=== PATIENT | female | born 1935 | race Caucasian/White ===

== ENCOUNTER → 2016-12-11 | Outpatient (CLI) | payer OTHER, MEDICARE | LOC: BHLMT 09:30 | PROVIDERS: ATTEND Internal Medicine Cardiovascular Disease | DX: R07.9 Chest pain, unspecified (principal); R94.31 Abnormal electrocardiogram [ECG] [EKG]; I25.10 Atherosclerotic heart disease of native coronary artery without angina pectoris; E78.00 Pure hypercholesterolemia, unspecified | CPT/HCPCS: 93005-PO ==

== ENCOUNTER → 2016-12-12 | Outpatient (CLI) | payer OTHER, MEDICARE ==
--- NOTE | 2016-12-12 16:27 | CPR ---
[f rep st] NONINVASIVE CARDIAC PROCEDURE REPORT DATE OF PROCEDURE: 12/12/2016 PROCEDURE: Treadmill nuclear stress test REASON FOR TEST: 1. Known coronary artery disease. 2. Stent. 3. Chest pain. RESTING PORTION: Resting EKG shows a regular sinus rhythm with a rate of 67. She has septal T-wave inversions indicative of old infarct. No ischemic changes noted. Blood pressure 114/70, oxygen satu ration 96%, heart rate 67. STRESS PORTION: She was exercised according to the Yaakov protocol for a total of 4 minutes and 3 sec onds. Peak blood pressure 156/72, peak heart rate 130, MET level 4.6. At 2 minutes and 36 seconds i nto stage 1, she did have an episode of atrial tachycardia lasting up to 15 beats, and then went back into sinus rhythm spontaneously. She was asymptomatic. There were no ischemic changes noted. RECOVERY: She spontaneously recovered. Recovery blood pressure 122/74, recovery heart rate 85, she remained asymptomatic. She had an occasional PAC noted in recovery. At this time, she currently is stable for nuclear imaging. /[id number]/MODL
== END ==
LOC: FIMAGING 13:54
PROVIDERS: ATTEND Nurse Practitioner Family
DX: I25.10 Atherosclerotic heart disease of native coronary artery without angina pectoris (principal); R07.9 Chest pain, unspecified; R94.31 Abnormal electrocardiogram [ECG] [EKG]
CPT/HCPCS: 78452; 93017; A9500

== ENCOUNTER → 2017-07-16 | Outpatient (CLI) | payer OTHER, MEDICARE | LOC: FIMAGING 14:15 | PROVIDERS: ATTEND Internal Medicine | DX: M41.86 Other forms of scoliosis, lumbar region (principal); M51.36 Other intervertebral disc degeneration, lumbar region; C50.919 Malignant neoplasm of unspecified site of unspecified female breast ==

== ENCOUNTER 2018-01-14 12:38 | Inpatient (IN) | payer OTHER, MEDICARE ==
[2018-01-14 13:09] LABS: PLATELET COUNT 239 10^3/uL (150-400)
--- NOTE | 2018-01-14 13:21 | EDPHY ---
H & P Stated Complaint: MIDSTERNAL CHEST PRESSURE SINCE YESTERDAY Source: Patient Exam Limitations: No limitations - Personal History Current Tetanus Diphtheria and Acellular Pertussis (TDAP): Unsure - Medical/Surgical History Hx Asthma: No Hx Chronic Respiratory Disease: No Hx Diabetes: No Hx Cardiac Disease: Yes Hx Renal Disease: No Hx Cirrhosis: No Hx Alcoholism: No Hx HIV/AIDS: No Hx Splenectomy or Spleen Trauma: No Other PMH: cardiac stents, BREASTCANCER 2012, LOBECTOMY 2012, RADIATION, BLADDER PROLAPS - Social History Smoking Status: Never smoked Time Seen by Provider: 01/14/18 13:01 HPI/ROS: CHIEF COMPLAINT: Chest pressure HISTORY OF PRESENT ILLNESS: The patient presents the ED with a 1 day history of chest pressure. The patient's symptoms began at midnight last night. She took antacids without significant improvement. She also took nitroglycerin without significant improvement. She had mild recurrent symptoms again at 5:00 a.m. This morning and has been asymptomatic since that time. The patient reports that she exercises frequently without chest pain or shortness of breath. She does have a history of coronary artery disease with a stent x1 performed in 2005. The patient has typically been followed with treadmill stress test. The patient reports her last stress test was approximately a year and half ago and normal. The patient denies any fever, cough or congestion. She denies asymmetric calf pain or swelling. She denies additional acute complaints. REVIEW OF SYSTEMS: A comprehensive 10 point review of systems is otherwise negative aside from elements mentioned in the history of present illness. (Trung Hensley) - Physical Exam Exam: General Appearance: Alert, no distress Eyes: Pupils equal and round no pallor or injection ENT, Mouth: Mucous membranes moist Respiratory: There are no retractions, lungs are clear to auscultation Cardiovascular: Regular rate and rhythm Gastrointestinal: Abdomen is soft and nontender, no masses, bowel sounds normal Neurological: A&O, normal motor function, normal sensory exam, normal cranial nerves Skin: Warm and dry, no rashes Musculoskeletal: Neck is supple nontender Extremities: symmetrical, full range of motion Psychiatric: Patient is oriented X 3, there is no agitation (Trung Hensley) Constitutional: Initial Vital Signs Temperature (C) 37.2 C 01/14/18 12:44 Heart Rate 84 01/14/18 12:44 Respiratory Rate 18 01/14/18 12:44 Blood Pressure 161/85 H 01/14/18 12:44 O2 Sat (%) 96 01/14/18 12:44 O2 Delivery Mode Room Air Allergies/Adverse Reactions: atorvastatin calcium [From Lipitor] Allergy (Verified 01/14/18 12:43) metronidazole [From Flagyl] Allergy (Verified 01/14/18 12:43) rosuvastatin calcium [From Crestor] Allergy (Verified 01/14/18 12:43) chlora prep Allergy (Uncoded 02/09/15 11:13) Home Medications: Medication Instructions Recorded Herbals/Supplements -Info Only 1 ea PO DAILY 02/09/15 Aspirin EC [Aspirin EC 81 mg (*)] 81 mg PO HS 01/14/18 Cholecalciferol Vit D3 [Vitamin D3 2,000 units PO DAILY 01/14/18 2000 units tab (OTC)] Estradiol [Estrace Vaginal (*)] 1 gm VAG SUWE 01/14/18 Levothyroxine [Synthroid 50 mcg 50 mcg PO DAILY06 01/14/18 (*)] Multivitamins [Multivitamin (*)] 1 each PO DAILY 01/14/18 Simvastatin 20 mg PO HS 01/14/18 Medical Decision Making - Diagnostics EKG Interpretation: EKG: Complete interpretation has been separately recorded in the [employer] archive. Summary impression: Sinus rhythm, the subtle ST segment elevation noted in the precordial leads without reciprocal changes. (Trung Hensley) Imaging Results: Imaging Impressions Chest X-Ray 01/14/18 13:02 Impression: Borderline cardiomegaly with no acute findings in the chest ED Course/Re-evaluation: The patient presents to the ED with a 1 day history of somewhat atypical chest pain. The patient's EKG demonstrates nonspecific ST T wave changes noted. The patient's initial troponin is normal. She has had no history of exertional chest pain with exercise. The patient has ruled out based upon the timing of her troponin here. I have ordered a treadmill stress test for further evaluation of the patient's chest pain which seems to be atypical in nature. Plan will be for treadmill stress test in the ED and discharged home if normal. The patient will be turned over to Dr. Vega at shift change. (Trung Hensley ) Differential Diagnosis: Differential diagnosis considered includes acute coronary syndrome, gastroesophageal reflux, esophageal spasm (Trung Hensley) Other Provider: I received a report of her treadmill stress test at 3:20 p.m.. The stress test was positive. She had inferolateral ST depression with occasional PVCs. She had some jaw discomfort. She had limited exercise tolerance. The plan is for her to be admitted to the hospitalist service and undergo cardiac catheterization tomorrow. I will arrange admission and review these findings with the patient. She remained stable while in the emergency department under my care. She was not experiencing chest pain. (Faith Vega) - Data Points Laboratory Results: Laboratory Results 01/14/18 12:55 01/14/18 12:55 01/14/18 01/14/18 01/14/18 12:56 12:55 12:55 WBC RBC Hgb Hct MCV MCH MCHC RDW Plt Count MPV Neut % (Auto) Lymph % (Auto) [place] % (Auto) Eos % (Auto) Baso % (Auto) Nucleat RBC Rel Count Absolute Neuts (auto) Absolute Lymphs (auto) Absolute Monos (auto) Absolute Eos (auto) Absolute Basos (auto) Absolute Nucleated RBC Immature Gran % Immature Gran # Sodium 140 mEq/L mEq/L (135-145) Potassium 4.3 mEq/L mEq/L (3.3-5.0) Chloride 103 mEq/L mEq/L (97-110) Carbon Dioxide 27 mEq/l mEq/l (22-31) Anion Gap 10 mEq/L mEq/L (6-14) BUN 17 mg/dL mg/dL (7-23) Creatinine 0.9 mg/dL mg/dL (0.6-1.0) Estimated GFR 60 Glucose 103 mg/dL H mg/dL (70-100) Calcium 10.3 mg/dL mg/dL (8.5-10.4) POC Troponin I 0.00 ng/mL ng/mL (0.00-0.08) Troponin I < 0.012 ng/mL ng/mL (0.000-0.034) 01/14/18 12:55 WBC 6.35 10^3/uL 10^3/uL (3.80-9.50) RBC 4.94 10^6/uL 10^6/uL (4.18-5.33) Hgb 14.5 g/dL g/dL (12.6-16.3) Hct 44.5 % % (38.0-47.0) MCV 90.1 fL fL (81.5-99.8) MCH 29.4 pg pg (27.9-34.1) MCHC 32.6 g/dL g/dL (32.4-36.7) RDW 13.2 % % (11.5-15.2) Plt Count 239 10^3/uL 10^3/uL (150-400) MPV 11.2 fL fL (8.7-11.7) Neut % (Auto) 51.2 % % (39.3-74.2) Lymph % (Auto) 37.5 % % (15.0-45.0) [place] % (Auto) 8.8 % % (4.5-13.0) Eos % (Auto) 1.4 % % (0.6-7.6) Baso % (Auto) 0.9 % % (0.3-1.7) Nucleat RBC Rel Count 0.0 % % (0.0-0.2) Absolute Neuts (auto) 3.25 10^3/uL 10^3/uL (1.70-6.50) Absolute Lymphs (auto) 2.38 10^3/uL 10^3/uL (1.00-3.00) Absolute Monos (auto) 0.56 10^3/uL 10^3/uL (0.30-0.80) Absolute Eos (auto) 0.09 10^3/uL 10^3/uL (0.03-0.40) Absolute Basos (auto) 0.06 10^3/uL 10^3/uL (0.02-0.10) Absolute Nucleated RBC 0.00 10^3/uL 10^3/uL (0-0.01) Immature Gran % 0.2 % % (0.0-1.1) Immature Gran # 0.01 10^3/uL 10^3/uL (0.00-0.10) Sodium Potassium Chloride Carbon Dioxide Anion Gap BUN Creatinine Estimated GFR Glucose Calcium POC Troponin I Troponin I Medications Given: Aspirin Buffered (Aspirin Ec) 81 mg PO HS DELON Stop: 07/13/18 20:59 Last Admin: 01/14/18 20:28 Dose: 81 mg Miscellaneous Medication (Simvastatin [Simvastatin]) 20 mg PO HS [facility] Stop: 07/13/18 20:59 Last Admin: 01/14/18 21:36 Dose: Not Given Nitroglycerin (Nitro-Bid 2%) 1 inch TP Q6HRS [facility] Stop: 07/13/18 17:59 Last Admin: 01/14/18 17:12 Dose: 1 inch Point of Care Test Results: Chemistry 01/14/18 12:56 POC Troponin I 0.00 ng/mL ng/mL (0.00-0.08) Departure - Departure Disposition: [facility] Inpatient Acute Clinical Impression: Chest pain Condition: Good
--- NOTE | 2018-01-14 13:40 | CPEKG ---
Test Reason : OPEN Blood Pressure : / mmHG Vent. Rate : 094 BPM Atrial Rate : 094 BPM P-R Int : 233 ms QRS Dur : 079 ms QT Int : 363 ms P-R-T Axes : 062 -09 026 degrees QTc Int : 454 ms Sinus rhythm Inferior Q waves Confirmed by Trung Hensley ([id number]) on 01/14/2018 1:40:01 PM Referred By: Confirmed By:Trung Hensley
[2018-01-14] MEDS ORDERED: ACETAMINOPHEN 325 MG TAB PO PRN (17:05)
[2018-01-14] MEDS ORDERED: NITROGLYCERIN 0.4 MG BTL SL PRN (17:05)
[2018-01-14] MEDS ORDERED: TEMAZEPAM 15 MG CAP PO PRN (17:05)
[2018-01-14] MEDS ORDERED: NITROGLYCERIN 2% 1 GM PACKET ONE (17:06)
[2018-01-14] MEDS: NITROGLYCERIN 2% 1 GM PACKET TP SCH (17:12)
[2018-01-14] MEDS ORDERED: ONDANSETRON DISINTEGRATING 4 MG TAB PO PRN (17:27)
[2018-01-14] MEDS ORDERED: ONDANSETRON 4 MG/2 ML VIAL IVP PRN (17:27)
--- NOTE | 2018-01-14 17:36 | PDGENHP ---
History and Physical - Chief Complaint chest pressure - History of Present Illness 82 yo female with h/o CAD and prior stent in 2005 who is quite active, walks and does [employer], is admitted to hospital from [facility] after an abnormal exercise stress test. Last night, at midnight, while at rest, she developed pressure in her chest. A similar pressure occurred 2 days prior while walking around the house. That time the pain subsided quickly. When the pain recurred last night, it lasted much longer, 20-30 minutes. There was no radiation, no SOB, no diaphoresis or nausea. She took 2 tums at midnight which did not help. She then took a nitro and this resolved the pain and she fell asleep. She awoke at 5 am with similar chest pressure and took another nitro, which helped. She called [facility] and was sent to the ED. She was then sent from here for an exercise treadmill stress test, which was abnormal with ST depression. She did not have pain or SOB. Given the abnormal EKG with stress, she is admitted with plans for left heart cath in the morning. History Information - Allergies/Home Medication List Allergies/Adverse Reactions: atorvastatin calcium [From Lipitor] Allergy (Verified 01/14/18 12:43) metronidazole [From Flagyl] Allergy (Verified 01/14/18 12:43) rosuvastatin calcium [From Crestor] Allergy (Verified 01/14/18 12:43) chlora prep Allergy (Uncoded 02/09/15 11:13) Home Medications: Herbals/Supplements -Info Only 1 ea PO DAILY 02/09/15 [Last Taken Unknown] Aspirin EC [Aspirin EC 81 mg (*)] 81 mg PO HS 01/14/18 [Last Taken 01/13/18] Cholecalciferol Vit D3 [Vitamin D3 2000 units tab (OTC)] 2,000 units PO DAILY [Last Taken Unknown] Estradiol [Estrace Vaginal (*)] 1 gm VAG SUWE 01/14/18 [Last Taken Unknown] Levothyroxine [Synthroid 50 mcg (*)] 50 mcg PO DAILY06 01/14/18 [Last Taken Unknown] Multivitamins [Multivitamin (*)] 1 each PO DAILY 01/14/18 [Last Taken Unknown] Simvastatin 20 mg PO HS 01/14/18 [Last Taken Unknown] I have personally reviewed and updated: family history, medical history, social history, surgical history - Past Medical History coronary artery disease Additional medical history: CAD stented 2005. presence of pessary - Surgical History Additional surgical history: breast cancer s/p lumpectomy 2012 - Family History Additional family history: dad of OR age 71. brother had CAD with CABG at age 80 - Social History Smoking Status: Never smoked Alcohol Use: Occasionally Drug Use: None Additional social history: Lives alone, independent, active Review of Systems Review of Systems: ROS: 10pt was reviewed & negative except for what was stated in HPI & below Physical Exam Physical Exam: Temp Pulse Resp BP Pulse Ox 37 C 96 18 168/82 H 37 L 01/14/18 15:54 01/14/18 15:54 01/14/18 12:44 01/14/18 15:54 01/14/18 15:54 Constitutional: no apparent distress Eyes: PERRL Ears, Nose, Mouth, Throat: moist mucous membranes Cardiovascular: regular rate and rhythym, no murmur, rub, or gallop Respiratory: no respiratory distress, clear to auscultation Gastrointestinal: normoactive bowel sounds, soft, non-tender abdomen Skin: warm Musculoskeletal: full muscle strength Neurologic: AAOx3 Psychiatric: interacting appropriately Lab Data & Imaging Review 01/14/18 12:55 01/14/18 12:55 WBC 6.35 10^3/uL (3.80-9.50) 01/14/18 12:55 RBC 4.94 10^6/uL (4.18-5.33) 01/14/18 12:55 Hgb 14.5 g/dL (12.6-16.3) 01/14/18 12:55 Hct 44.5 % (38.0-47.0) 01/14/18 12:55 MCV 90.1 fL (81.5-99.8) 01/14/18 12:55 MCH 29.4 pg (27.9-34.1) 01/14/18 12:55 MCHC 32.6 g/dL (32.4-36.7) 01/14/18 12:55 RDW 13.2 % (11.5-15.2) 01/14/18 12:55 Plt Count 239 10^3/uL (150-400) 01/14/18 12:55 MPV 11.2 fL (8.7-11.7) 01/14/18 12:55 Neut % (Auto) 51.2 % (39.3-74.2) 01/14/18 12:55 Lymph % (Auto) 37.5 % (15.0-45.0) 01/14/18 12:55 [place] % (Auto) 8.8 % (4.5-13.0) 01/14/18 12:55 Eos % (Auto) 1.4 % (0.6-7.6) 01/14/18 12:55 Baso % (Auto) 0.9 % (0.3-1.7) 01/14/18 12:55 Nucleat RBC Rel Count 0.0 % (0.0-0.2) 01/14/18 12:55 Absolute Neuts (auto) 3.25 10^3/uL (1.70-6.50) 01/14/18 12:55 Absolute Lymphs (auto) 2.38 10^3/uL (1.00-3.00) 01/14/18 12:55 Absolute Monos (auto) 0.56 10^3/uL (0.30-0.80) 01/14/18 12:55 Absolute Eos (auto) 0.09 10^3/uL (0.03-0.40) 01/14/18 12:55 Absolute Basos (auto) 0.06 10^3/uL (0.02-0.10) 01/14/18 12:55 Absolute Nucleated RBC 0.00 10^3/uL (0-0.01) 01/14/18 12:55 Immature Gran % 0.2 % (0.0-1.1) 01/14/18 12:55 Immature Gran # 0.01 10^3/uL (0.00-0.10) 01/14/18 12:55 Sodium 140 mEq/L (135-145) 01/14/18 12:55 Potassium 4.3 mEq/L (3.3-5.0) 01/14/18 12:55 Chloride 103 mEq/L (97-110) 01/14/18 12:55 Carbon Dioxide 27 mEq/l (22-31) 01/14/18 12:55 Anion Gap 10 mEq/L (6-14) 01/14/18 12:55 BUN 17 mg/dL (7-23) 01/14/18 12:55 Creatinine 0.9 mg/dL (0.6-1.0) 01/14/18 12:55 Estimated GFR 60 01/14/18 12:55 Glucose 103 mg/dL (70-100) H 01/14/18 12:55 Calcium 10.3 mg/dL (8.5-10.4) 01/14/18 12:55 POC Troponin I 0.00 ng/mL (0.00-0.08) 01/14/18 12:56 Visualized and Interpreted Chest x-ray results: Yes Chest X-Ray results: no infiltrate Visualized and Interpreted EKG results: Yes EKG Interpretation: Positive for: Q waves Assessment & Plan Assessment: Chest pain (Acute) - abnormal exercise stress test today. Currently chest pain free. Q waves on EKG, but nothing to suggest acute ischemia. -admit to PCU, trend trop -npo at midnight, cath planned for am, cardiology involved -nitro paste -cont ASA, statin -no indication for heparin, unless positive trop or recurrent CP (prn ekg) -lipid panel in am Hypothyroidism - cont home meds Hyperlipidemia - cont statin Full code Dispo - obs
[2018-01-14] MEDS ORDERED: SIMVASTATIN 20 MG PO SCH (21:00)
[2018-01-14] MEDS ORDERED: ASPIRIN EC 81 MG TAB PO SCH (21:00)
[2018-01-15] MEDS: NITROGLYCERIN 2% 1 GM PACKET TP SCH ×2 (01:52→18:37)
[2018-01-15] MEDS: LEVOTHYROXINE 50 MCG TAB PO SCH (04:17)
[2018-01-15 04:38] LABS: PLATELET COUNT 212 10^3/uL (150-400)
[2018-01-15 04:47] LABS: INR 1.15 (0.83-1.16); PROTIME(PATIENT) 14.9 SEC (12.0-15.0)
--- NOTE | 2018-01-15 05:46 | CPR ---
PROCEDURE: Exercise treadmill test. SUPERVISING UNDER PRESSER: Dr. Mcfarlane INDICATION FOR TESTING: Chest pressure, known history of CAD. PRE: After obtaining informed consent, the patient reports no chest pain, pressure or symptoms sugge sting of ischemia. Initial EKG shows sinus rhythm , normal axis, nonspecific T-wave abnormalities. SpO2 97% on room air. Temperature of 150/80. Patient denies chest pain, pressure or symptoms sugges ting of ischemia. STRESS: Patient placed on exercise treadmill. Following standard Yaakov protocol the following findi ngs: 1. Patient exercised 3 minutes. 2. 4.7 METS. 3. Patient obtained a heart rate of 136 beats per minute, which was 97% of her MPHR. 4. Patient was noted to have [address] depression in inferolateral leads. 5. Patient did report right jaw pressure at peak exercise. 6. BP response rest 150/80, peak 180/90. 7. Patient was noted to have a single PVC at stress during stress. 8. SpO2 greater than 90% throughout testing. 9. Testing was stopped due to maximum effort. 10. Abdi treadmill score of -6. The patient at intermediate cardiovascular risk. RECOVERY: Patient recovered for 5 minutes, ST depression returned back to baseline. The patient's j aw pain went away, blood pressure remained stable, and heart rate returned back to baseline. No arrh ythmias noted during recovery. Blood pressure remained stable at 150, final blood pressure to 158/80 . Patient was symptom free and vital signs were stable, she was taken back to the emergency departme nt. IMPRESSION: An 82-year-old female with known history of coronary artery disease with reported episod es of chest pressure over the last week with needing sublingual nitroglycerin resolving of pain. Dev eloped right jaw pressure , and ST depression with exercise, improvement with rest. No malignant arr hythmias. Abdi treadmill score of -6 placing her at intermediate risk, equivocal testing for ischemi a. Results called to the emergency department physician, we have been asked to consult, plan for travis culp to be admitted to the hospitalist services, she will made be n.p.o. after midnight, with plan of coronary catheterization tomorrow morning. Please see consultation note. /[id number]/MODL
[2018-01-15] MEDS ORDERED: NS 1,000 ML IV ONE (06:00)
[2018-01-15] MEDS ORDERED: DIAZEPAM 5 MG TAB PO ONE (06:00)
[2018-01-15] MEDS ORDERED: FAMOTIDINE 20 MG TAB PO ONE (06:00)
[2018-01-15] MEDS ORDERED: ASPIRIN EC 325 MG TAB PO ONE ×2 (06:00→08:31)
[2018-01-15] MEDS ORDERED: diphenhydrAMINE 25 MG CAP PO ONE ×2 (06:00→08:31)
--- NOTE | 2018-01-15 06:01 | GCON ---
CARDIOLOGY CONSULTATION. REASON FOR CONSULTATION: Known history of CAD, chest pain, abnormal exercise treadmill test. REQUESTING PHYSICIAN: Dr. Hensley of Emergency Services HISTORY OF PRESENT ILLNESS: Ms. York is an 82-year-old female who is known to our practice. Her primary air pumper is Dr. Hari Oglesby. She has significant past history that includes CAD with previous stent implantation into her ramus artery in 2005 and hyperlipidemia. She also has significant past history that includes breast cancer with lumpectomy and hypothyroidism. The patient reports prior to 2 weeks ago she had been in her normal state health. She states that approximately 2 weeks ago she did have an episode of midsternal chest pressure, she reported this pain came on spontaneously, and lasted for approximately 20 minutes. She did take a sublingual nitroglycerin at that time, in which it resolved within 5 minutes. She reports last evening having similar symptoms thinking that potentially this was possible indigestion , and she did take antacids with reported not significant symptoms, but she was able to fall asleep. She does report waking up at 5 o'clock this morning again having this midsternal chest pressure again and she did take a nitroglycerin, which did improve her symptoms to dissipate. She did call our office to get an appointment to be seen, which was tomorrow, but with her history it was advised by 1 of our paint spray inspector for her to come to the emergency department for further evaluation in which she presented at [facility] ED at 1:00 p.m. Initial laboratory studies drawn did note a negative troponin of 0.00. Electrocardiogram was also done, which showed Q-waves in lead [address] or T-wave abnormalities. She did undergo exercise treadmill testing this afternoon, in which was noted [address] depression in inferior leads. While running on the treadmill, she did have some mild right-sided jaw pain, and she was also noted to have a dip in her blood pressure with exertion. Testing was stopped in 3 minutes due to meeting target heart rate maximum effort. She did have a Abdi treadmill score of -6 placing her at intermediate cardiovascular risk. She does state that she has had jaw pain in the past with exercise but has not experienced chest pressure. She does say with her episodes of chest pressure last night and this morning she did have some mild shortness of breath but denies any nausea or diaphoresis. She reports no orthopnea, PND, palpitations, lightheadedness, near-syncope, or syncopal events. Reporting no recent fevers, chills, or night sweats. PAST MEDICAL HISTORY: 1. CAD. 2. Hyperlipidemia. 3. Hypothyroidism. 4. Breast cancer right side with previous radiation. 5. Hypothyroidism. 6. History of ischemic colitis. PREVIOUS SURGERIES: 1. Hysterectomy. 2. Lumpectomy of right breast. 3. Percutaneous coronary intervention with Taxus MARIA EUGENIA implantation of the ramus artery in 2005. FAMILY HISTORY: Noncontributory. SOCIAL HISTORY: She has 4 children. She retired. She occasionally drinks alcohol. She occasionally drinks caffeine. She attempts to exercise on a routine basis. She has never abused tobacco. ALLERGIES: Patient with noted history of allergies to atorvastatin, Crestor, and Lipitor, which have all caused myalgias. MEDICATIONS: At home include levothyroxine 0.05 mg p.o. daily, aspirin 81 mg p.o. daily, simvastatin 20 mg p.o. at bedtime, Co Q10 200 mg daily, multivitamin daily, fish oil 1 tablespoon daily, calcium with vitamin D 500 mg and 1000 units, magnesium citrate 400 mg once daily, estrogen vaginal cream 1 g twice a week. . REVIEW OF SYSTEMS: A 10-point review of systems done on this patient all negative except as mentioned above. PHYSICAL EXAMINATION: GENERAL APPEARANCE: A medium built, well-groomed, female. She is alert and oriented to person, place, time, and situation. Currently, she appears to be under no acute distress. VITAL SIGNS: Blood pressure 168/82, heart rate is 96, sinus rhythm on the monitor, SpO2 is 96% on room air, temperature 37.2 degrees Celsius. HEENT: Head is normocephalic. Lips and tongue are pink and moist with no signs of cyanosis. Conjunctivae pink. NECK: Trachea is midline, +2 carotid pulses bilateral, no auscultated bruits, no jugular vein distention. RESPIRATORY: Lungs are clear to auscultation, no rhonchi, rales, or wheezes. No accessory muscle use. No intercostal muscle retraction noted. CARDIAC: Regular rate, regular rhythm, S1 , S2, no S3 or 4, no gallops, rubs, or murmurs noted. ABDOMEN: Soft, nontender , bowel sounds x4 quadrants. No organomegaly, no palpable masses. SKIN: [place] , warm, dry, no cyanosis, no clubbing, no peripheral edema. VASCULAR: +2 carotids bilateral, +2 radials bilateral, +2 dorsal pedal and posterior tibial pulses bilateral. LABORATORY AND X-RAY DATA: Laboratory studies drawn today show WBC of 6.35, hemoglobin 14.5, hematocrit 44.5, platelet count 239. Sodium 140, potassium 4.3 , chloride 103, CO2 of 27, BUN 17, creatinine 0.9, glucose 103, calcium 10.3, initial troponin was 0.00, repeated troponin drawn at my visit was 0.00. Electrocardiogram as mentioned above. Chest x-ray showing borderline cardiomegaly with no acute cardiopulmonary process. ASSESSMENT AND PLAN: 1. Chest pressure: Patient reporting episodes of chest pressure, 3 episodes since last week. Does report attempted to use antacids with no relief. Does report attempting to use sublingual with relief of pain. Reports pain is not exertional but has also had jaw pain with exertion in the recent past. Underwent exercise treadmill testing today, which was equivocal for ischemia with Abdi treadmill -6. The patient did report some mild chest pressure during my examination, which sublingual nitroglycerin has been ordered and relieved pain. She has a significant history of previous stents and known CAD in all vessels, which were non-flow limiting in 2005. She has had a previous MPI study done greater than a year ago, which did show no evidence of ischemia. At this time, after discussing with Dr. Mcfarlane, it was felt best that patient would be further evaluated for cardiac ischemia by undergoing cardiac catheterization. We will make her n.p.o. after midnight. She will continue on sublingual nitroglycerin. She has taken aspirin today. She has had 2 negative troponins, will not anticoagulate in case they increase. Will watch her on telemetry unit tonight. 2. Coronary artery disease: Continue aspirin, previous stents, coronary angiogram as mentioned above, continue antiplatelet therapy. 3. Hyperlipidemia: The patient has been noted to be of myalgia to multiple statins in the past, will continue on home dose of simvastatin. 4. Hypothyroidism: She is currently on Synthroid, will defer to the hospitalist for management. Thank you for this consultation. I will be glad to follow along with you. More recommendations post procedure tomorrow. Note that if patient does have recurring symptoms or does have any significant EKG or troponin bumps, we may consider doing her cardiac catheterization more on an urgent basis. /[id number]/MODL MTDD
[2018-01-15] MEDS ORDERED: DIAZEPAM 5 MG TAB ONE (08:31)
[2018-01-15] MEDS ORDERED: FAMOTIDINE 20 MG TAB ONE (08:31)
[2018-01-15] MEDS ORDERED: LIDOCAINE 1% 300 MG/30 ML SDV ONE (09:16)
[2018-01-15] MEDS ORDERED: IOPAMIDOL (ISOVUE-370) 150 ML BTL IV ONE (09:17)
[2018-01-15] MEDS ORDERED: fentaNYL 100 MCG/2 ML INJ ONE ×2 (09:17→10:12)
[2018-01-15] MEDS ORDERED: HEPARIN 10,000 UNIT/10 ML MDV (1,000 UNIT/ML) ONE (09:17)
[2018-01-15] MEDS ORDERED: VERAPAMIL 5 MG/2 ML VIAL ONE (09:17)
[2018-01-15] MEDS ORDERED: MIDAZOLAM 2 MG/2 ML VIAL ONE ×2 (09:17→10:12)
--- NOTE | 2018-01-15 09:43 | PDHPUP ---
History & Physical Update H&P update statement: This history and physical update is based on an assessment of the patient which was completed after admission or registration (within 24 hours), but prior to the surgery/procedure. H&P update: H&P reviewed & patient examined, no change in patient's condition since H&P completed
--- NOTE | 2018-01-15 09:43 | PDPROPOC ---
Sedation Plan of Care Sedation Plan of Care: vital signs stable, mental status noted, patient educated of risks, benefits, alternatives, patient can tolerate sedation ASA Classification: ASA 3 Planned drugs: fentanyl, midazolam Mallampati Score: Class 3 Mallampati Reference Image: Patient passed 3-3-2 rule?: Yes
[2018-01-15] MEDS ORDERED: CLOPIDOGREL BISULFATE 75 MG TAB ONE (10:40)
[2018-01-15] MEDS ORDERED: ATROPINE SULFATE 1 MG/10 ML SYR IVP PRN (11:18)
[2018-01-15] MEDS ORDERED: HYDROCODONE/APAP 5/325 TAB PO PRN (11:18)
[2018-01-15] MEDS ORDERED: CLOPIDOGREL BISULFATE 75 MG TAB PO ONE (11:18)
[2018-01-15] MEDS ORDERED: NS 1,000 ML IV SCH (11:30)
--- NOTE | 2018-01-15 14:25 | CPIP ---
DATE OF PROCEDURE: 01/15/2018 PROCEDURE PERFORMED: 1. Selective coronary angiography. 2. Left heart catheterization. 3. Left ventriculogram. 4. Percutaneous transluminal coronary angioplasty and stent placement of the ramus intermedius vesse l with the use of a 225 x 24 Synergy drug-eluting stent. COMPLICATIONS: None. INDICATION FOR THE PROCEDURE/APPROPRIATE USE CRITERIA: This patient has developed CCS class 4 angina at rest. Has known coronary disease and prior stent implantation of the ramus intermedius vessel. Her angina pectoris is refractory to medical management. An EKG stress test performed yesterday revealed an early positive stress test consistent with interme diate risk. PROCEDURE IN DETAIL: After informed consent was obtained, n.p.o. status was confirmed, the region of the left wrist was cleaned, prepped, and draped in sterile fashion. Approximately 5 cc of 1% lidoca ine was utilized for local anesthesia. The modified Seldinger technique was used to gain access to t he left radial artery x1 and with single anterior puncture of the vessel. The patient underwent the previously mentioned diagnostic procedures with the use of JR4 and JL4 diagnostic catheters as well a s a 5-Prydeinig pigtail catheter. Standard wire exchange technique was utilized for all catheter exchan ges. The right coronary artery lumen is 4 mm in size and reveals disease in its proximal segment, estimate d to have a maximal luminal stenosis of approximately 30%. It is a dominant vessel giving rise to po sterior descending as well as 2 posterolateral ventricular branches. The left main coronary lumen is 4 mm in size and trifurcates into an LAD, ramus intermedius, and circ umflex system. The circumflex vessel is 225 in size and relatively short, giving rise to a good obtu se marginal vessel. The ramus intermedius is also 225 in size and has evidence of severe in-stent re stenosis within the middle of the previously stented segment. There is approximately 85% stenosis of that area and then just distal to the stent, but in the same segment, there is a 90% stenosis of the blood vessel in a napkin-ring type configuration. LAYNE-3 flow is present. There is a 50% lesion in the ostium of the LAD just at the level of the takeoff from the left main. The LAD proper is widely patent, giving rise to an important diagonal vessel and is free of flow-limiting disease. It course s to the anterior apex as a relatively small vessel without flow-limiting obstruction. The patient underwent left heart catheterization demonstrating elevated left ventricle end-diastolic pressure measured at 18 mmHg. The patient underwent left ventriculogram in the ARNOLD projection, demon strating hypercontractile left ventricular systolic function. Ejection fraction is greater than 75%. No significant mitral regurgitation or aortic stenosis was noted upon pullback across the aortic va lve. The visualized portion of the thoracic aorta reveals 3 sinuses of Valsalva most consistent with a trileaflet aortic valve. There is no evidence of omkar aneurysm or dissection. We turned our attention to the lesion within the ramus intermedius. The 5-Prydeinig sheath was exchange d for a 6-Prydeinig slender sheath. A 6-Prydeinig 3.5 EBU catheter was used for guide catheter support. A 0.014 intuition wire was used to cross the lesion in question. The vessel was primarily ballooned w ith a 2.0 X 12 Emerge balloon. Both lesions were independently dilated with relatively good angiogra phic results, but because this involves in-stent restenoses, the decision was made to re stent the bl ood vessel. A 225 x 24 Synergy stent was then deployed across the lesion in the middle of the stent as well as at its distal margin with excellent angiographic results. Maximal pressure was 14 atmosph eres with serial inflations and approximately a 5% residual stenosis. There was excellent LAYNE-3 ollie w post stent implantation. The patient tolerated the procedure well without immediate complication and will return to the post c ath recovery unit in good and stable condition, where a stat postoperative EKG will be obtained. IMPRESSION: 1. Successful balloon angioplasty and stent implantation for indication of unstable and medically re fractory angina in a patient with known coronary disease and prior stent of the ramus intermedius. T he patient will require aspirin and Plavix in combination for at least 1 year following stent implant ation. Any decision to stop dual antiplatelet therapy should involve our office at [phone]. 2. Incidentally noted on the LV gram, and tracking of the dye into the ascending aorta and arch is t hat the patient has a high-grade stenosis of the right common carotid within the chest just above the arch takeoff. This is an eccentric lesion at a kink of the blood vessel and is estimated to be appr oximately 80% stenosed. The patient should have a dedicated CT angiogram of the head and neck. This is within the chest and therefore may benefit from carotid stenting if indeed the lesion is confirme d to be flow limiting and severe. /[id number]/MODL
--- NOTE | 2018-01-15 15:13 | ASMTCMCOM ---
CM Note CM Note Notes: 01/15/2018 Case Management Note Pt admitted for ACS and CP after an abnormal stress test at MD office. There are no therapy evals ordered at this time. Discussed pt during rounds.. Pt is and has family support. RN agrees pt has no discharge needs. Case Management d/c poc: anticipating independent with follow up as directed. Case Management available if needs change. Date Signed: 01/15/2018 03:12 PM Electronically Signed By:Anastasiya Mojica RN
--- NOTE | 2018-01-15 16:30 | HOSPPROG ---
Hospitalist Progress Note Assessment/Plan: Chest pain (Acute) - abnormal exercise stress test today. Q waves on EKG, but nothing to suggest acute ischemia. CAD: -had stent to Ramus Intermedius -Aspirin/Plavix -LDL: 53 R common carotid stenosis -seen during cath. approx stenosis is 80%. CTA has been ordered for confirmation tomorrow. Further reccs pending study. -she does not have neurological deficits Hypothyroidism - cont home meds Hyperlipidemia - cont statin. LDL 53 Full code Dispo - change to inpatient Subjective: out of cath. doing well. no cp or sob. Objective: Vital Signs Temp Pulse Resp BP Pulse Ox 36.7 C 83 20 165/59 H 92 01/15/18 16:01 01/15/18 16:01 01/15/18 16:01 01/15/18 16:01 01/15/18 16:01 Laboratory Results 01/15/18 03:32 01/15/18 03:32 01/14/18 01/15/18 01/16/18 05:59 05:59 05:59 Intake Total 300 500 Output Total 600 1 Balance -300 499 PT 14.9 SEC (12.0-15.0) 01/15/18 03:32 INR 1.15 (0.83-1.16) 01/15/18 03:32 - Physical Exam Constitutional: no apparent distress Eyes: PERRL Ears, Nose, Mouth, Throat: moist mucous membranes, hearing normal, ears appear normal Cardiovascular: regular rate and rhythym, No edema Respiratory: no respiratory distress, no rales or rhonchi, clear to auscultation Gastrointestinal: normoactive bowel sounds, soft, non-tender abdomen, no palpable masses Skin: warm Neurologic: AAOx3 Psychiatric: interacting appropriately, not anxious, not encephalopathic Lymph, Heme, Immunologic: No petechiae ICD10 Worksheet Patient Problems: Problems Problem Status Onset Chest pain Acute Unstable angina pectoris due to coronary arteriosclerosis Acute
[2018-01-15] MEDS: CHOLECALCIFEROL VIT D3 2,000 UNITS TAB/CAP PO SCH (17:22)
--- NOTE | 2018-01-15 18:51 | PDMN ---
Medical Necessity Medical necessity: Change to IP, as of 01/15/18, per MD & MCG M-89; los >2 mn for ongoing management of acute chest pain s/p cardiac cath w/80% R carotid stenosis; requiring further cardiac monitoring & CTA; comorbid advanced age, CAD
[2018-01-15] MEDS ORDERED: SIMVASTATIN 40 MG PO SCH (21:00)
[2018-01-16 04:15] LABS: PLATELET COUNT 187 10^3/uL (150-400)
[2018-01-16] MEDS: LEVOTHYROXINE 50 MCG TAB PO SCH (07:25)
[2018-01-16] MEDS: CHOLECALCIFEROL VIT D3 2,000 UNITS TAB/CAP PO SCH (08:08)
--- NOTE | 2018-01-16 08:59 | HOSPPROG ---
Hospitalist Progress Note Assessment/Plan: #CAD: intermediate ramus stented. ASA/Plavix #Right common carotid stenosis: seen during cath. CTA pending #Hypothyroidism: LT4 #HLD: statin Objective: Vital Signs Temp Pulse Resp BP Pulse Ox 36.6 C 90 19 152/76 H 94 01/16/18 07:45 01/16/18 07:45 01/16/18 07:45 01/16/18 07:45 01/16/18 07:45 Laboratory Results 01/16/18 03:25 01/16/18 03:25 01/15/18 01/16/18 01/17/18 05:59 05:59 05:59 Intake Total 1700 Output Total 450 Balance 1250 PT 14.9 SEC (12.0-15.0) 01/15/18 03:32 INR 1.15 (0.83-1.16) 01/15/18 03:32 ICD10 Worksheet Patient Problems: Problems Problem Status Onset Chest pain Acute Unstable angina pectoris due to coronary arteriosclerosis Acute
[2018-01-16] MEDS ORDERED: CLOPIDOGREL BISULFATE 75 MG TAB PO SCH (09:00)
[2018-01-16] MEDS ORDERED: ASPIRIN EC 325 MG TAB PO SCH (09:00)
--- NOTE | 2018-01-16 10:06 | CPEKG ---
Test Reason : OPEN Blood Pressure : / mmHG Vent. Rate : 059 BPM Atrial Rate : 059 BPM P-R Int : 254 ms QRS Dur : 075 ms QT Int : 454 ms P-R-T Axes : 060 -01 040 degrees QTc Int : 450 ms Sinus rhythm Prolonged CT interval Low voltage, precordial leads Probable anteroseptal infarct, old Confirmed by Shankar Ruiz ([id number]) on 01/16/2018 10:05:32 AM Referred By: Confirmed By:Shankar Ruiz
--- NOTE | 2018-01-16 11:22 | PDCARPN ---
Cardiology Progress Note Chief Complaint: cp/abn TM stress test Assessment/Plan: Assessment: 82F PMH CAD/previous stent to RI 2008, hlp, breast CA, hypoT, noting 2 week h/o cp. She had TM stress test in this admission which was intermediate-high risk. She proceeded to [facility] and was found to have severe stenosis in with ISR as well as 90% distal to previously stented segment. S/p PTCA/stenting with Synergy MARIA EUGENIA. Incidental finding of carotid stenosis on LV gram in R common carotid. #. chest pressure suggestive of ACS: s/p PTCA/stenting to RI minimal residual disease in other vessels LDL 53 on Simvastatin will need 1 year of DAPT #. carotid disease: noted on LV gram awaiting CTA head/neck #. elevated blood pressures: she would like to defer starting meds as she feels she is having situational htn will have her maintain BP log and bring home monitor to next OV #. BRISA: new finding we discussed this and she understands that echo is recommended in O/P setting order entered Plan: - Await carotid/chest CTA - Outpatient echo 01/16/18 10:44 Subjective: Feels well. No cp. Wrist with mild bruising but no pain. Reviewed/Discussed With: hospitalist (Dr. Sosa) Time Spent with Patient: greater than 25 minutes Time Spent with Patient: Greater than 25 minutes spent on this patients care, greater than 50% of time spent counseling, educating, and coordinating care regarding the above mentioned plan. Objective: Vital Signs (8 Hrs) Temp Pulse Resp BP Pulse Ox 01/16/18 07:45 97.9 F 90 19 152/76 H 94 01/16/18 04:34 98.4 F 71 16 163/61 H 94 Intake/Output (24 Hrs) 01/15/18 01/16/18 01/17/18 05:59 05:59 05:59 Intake Total 1700 Output Total 450 Balance 1250 Intake: Oral (ml) 700 IV Intake (ml) 1000 Output: Urine (ml) 450 Toilet 450 Result Diagrams: 01/16/18 03:25 01/16/18 03:25 EKG: NSR Telemetry: reviewed SR - Physical Exam Constitutional: healthy appearing, no apparent distress Eyes: anicteric sclera Ears, Nose, Mouth, Throat: moist mucous membranes Cardiovascular: regular rate and rhythm, systolic murmur, other (radiating to carotids) Respiratory: clear to auscultate bilat, no crackles Gastrointestinal: normoactive bowel sounds Skin: no rashes, no abrasions Neurologic: AAOx3 Psychiatric: cooperative, interactive ICD10 Worksheet Patient Problems: Problems Problem Status Onset Unstable angina pectoris due to coronary arteriosclerosis Acute Chest pain Acute
[2018-01-16 12:02] VITALS: BP 161/82
[2018-01-16] MEDS ORDERED: IOPAMIDOL (ISOVUE 370) 100 ML BTL IV ONE (12:13)
--- NOTE | 2018-01-16 15:17 | ASDISCHSUM ---
Discharge Information Plan Status:Home with No Needs Medically Cleared to Leave:01/16/2018 Discharge Date:01/16/2018 CM D/C Disposition:Home, Routine, Self-Care ADT D/C Disposition:Home, Routine, Self-Care Projected Discharge Date:01/16/2018 Transportation at D/C:Family Discharge Delay Reason: Follow-Up Date:01/16/2018 Discharge Slot: Final Diagnosis: Placement Information Patient Contact Information Contact Name:IVETIFEANYIMEEK Relationship:Daughter Address:[address]UGH[address] [phone] Work Phone: City:[place] Alternate Phone: State/Zip Code:[place] [address] Email: Financial Information Financial Class:Medicare Primary Plan Desc:MEDICARE OUTPATIENT Primary Plan Number:[id number] Secondary Plan Desc:JOVANNI/MI SUPPLEMENT Secondary Plan Number:[id number] Assessment Information LACE LACE Length of stay for Answers: Less than 1 day current admission Acuity / Level of Answers: Yes Care: Did the patient have an inpatient admission? Comorbidities - select Answers: Any tumor (including all that apply lymphoma or leukemia) Coronary Artery Disease Other Notes: ACS, CP # of Emergency department Answers: 1-2 visits in the last 6 months Score: 9 Date Signed: 01/16/2018 03:15 PM Electronically Signed By:Anastasiya Mojica RN [facility] CM Progress Note CM Note CM Note Notes: 01/15/2018 Case Management Note Pt admitted for ACS and CP after an abnormal stress test at MD office. There are no therapy evals ordered at this time. Discussed pt during rounds.. Pt is and has family support. RN agrees pt has no discharge needs. Case Management d/c poc: anticipating independent with follow up as directed. Case Management available if needs change. Date Signed: 01/15/2018 03:12 PM Electronically Signed By:Anastasiya Mojica RN Intervention Information Intervention Type:*LANGE-Signed Date of Service:01/15/2018 03:38 PM Patient Type:Observation Staff Member:Lokesh Marques Hours: Discipline: Severity: Comment:
--- NOTE | 2018-01-16 20:26 | GDS ---
DISCHARGE DIAGNOSES: 1. Acute chest pain. 2. Coronary disease, s/p stent to ramus intermedius. 3. Concern for right common carotid stenosis. 4. Hypothyroidism. 5. Hyperlipidemia. PROCEDURES: Cardiac catheterization 01/15/2018: Successful balloon angioplasty and stent of the ramus intermedius. Incidental finding of the right common carotid artery 80% stenosis. HISTORY OF PRESENT ILLNESS: A pleasant 82-year-old female with coronary disease and prior stent in 2005, admitted from [facility] after an abnormal exercise stress test. She had presented with chest pressure while walking around her home a few days prior that resolved quickly. She had a recurrent episode at night that lasted 20-30 minutes. There was no associated radiation, shortness of breath, diaphoresis, or nausea. She took a nitroglycerin. Pain resolved. She awoke at 5 a.m., with similar chest pressure. HOSPITAL COURSE BY PROBLEM: 1. Coronary disease: Status post stent to ramus intermedius. Continue dual- antiplatelet therapy for 1 year with aspirin and Plavix. She is to follow up with Dr. Oglesby 01/22/2018. 2. Concern for common carotid stenosis: This was noted on LV gram. CTA head/ neck reassuring with no significant stenosis. 3. Hypertension: Patient does not want to start blood pressure medication here. Advised her to keep a log for the next several days and contact her PCP if remains elevated. 4. Systolic murmur: This is a new finding. Cardiology will arrange for an outpatient echocardiogram. DISPOSITION: Patient is stable for discharge home. NEW MEDICATIONS: 1. Plavix 75 mg daily. 2. Aspirin 325 daily. 3. P.r.n. Nitroglycerin. FOLLOWUP: Dr. Oglesby, 01/22/2018, at 11 a.m. PHYSICAL EXAM: VITAL SIGNS: Today, temperature 37.4, blood pressure 161/82, heart rate in 70s, respirations 16, 94% on room air. GENERAL: She is well- appearing, younger than stated age. No acute distress. HEENT: PERRLA. Moist mucous membranes. CV: Regular rate and rhythm. Positive systolic murmur. LUNGS: Clear. ABDOMEN: Soft, nontender, nondistended. Positive bowel sounds. : No Renee. NEURO: 2 through 12 intact. PSYCH: Alert and oriented x3. TIME SPENT ON DISCHARGE: Greater than 30 minutes coordinating discharge and discussing followup plan with family and patient. /[id number]/MODL MTDD
[2018-01-16] MEDS ORDERED: Simvastatin [Zocor] 40 MG PO SCH (21:00)
[2018-01-17] MEDS ORDERED: MULTIVITAMINS 1 EACH TAB PO SCH (09:00)
[2018-01-17] MEDS ORDERED: Herbals/Supplements -Info Only PO SCH (09:00)
== END 2018-01-16 16:56 | disposition home or self-care (01) | DRG 247 ==
LOC: F2W 17:55 → OBSVTOIN 01-15 16:26
PROVIDERS: ADMIT Hospitalist; ATTEND Hospitalist
PROC: B2151ZZ Fluoroscopy of Left Heart using Low Osmolar Contrast (ICD-10-PCS; principal; 2018-01-15)
PROC: 4A023N7 Measurement of Cardiac Sampling and Pressure, Left Heart, Percutaneous Approach (ICD-10-PCS; principal; 2018-01-15)
PROC: B2111ZZ Fluoroscopy of Multiple Coronary Arteries using Low Osmolar Contrast (ICD-10-PCS; principal; 2018-01-15)
PROC: 027034Z Dilation of Coronary Artery, One Artery with Drug-eluting Intraluminal Device, Percutaneous Approach (ICD-10-PCS; principal; 2018-01-15)
DX: I25.10 Atherosclerotic heart disease of native coronary artery without angina pectoris (principal); I65.21 Occlusion and stenosis of right carotid artery; E03.9 Hypothyroidism, unspecified; E78.5 Hyperlipidemia, unspecified; R01.1 Cardiac murmur, unspecified; I10 Essential (primary) hypertension; Z85.3 Personal history of malignant neoplasm of breast
CPT/HCPCS: 84484-PO; C1725; C1769; C1874; C1887; C9600; G0378; J1644; J2250; J3010; Q9967